=== PATIENT | female | born 2000 | race Caucasian/White ===

== ENCOUNTER → 2018-12-17 19:15 | Observation (INO) ==
--- NOTE | 2018-12-17 17:23 | Discharge Summary ---
Date of Encounter: 12/17/18 Time of Encounter: 17:21 - Discharge Diagnosis (1) 35 weeks gestation of Priority: Primary Status: Acute Comments: Admit to observation for possible SROM (2) Vaginal discharge during in third trimester Priority: Secondary Status: Acute Comments: Vaginosis panel collected and sent to lab Nitrazine negative - Discharge Medications Prescriptions: No Action Caplet 1 tab PO DAILY Home Medications: Caplet 1 tab PO DAILY 12/17/18 [History] Allergies/Adverse Reactions: Allergy/AdvReac Type Severity Reaction Status Date / Time codeine Allergy Gastrointestinal Verified 05/08/18 11:49 Upset diphenhydramine Allergy Itching Verified 05/08/18 11:49 [From Benadryl] Date of admission: 12/17/18 16:26 Discharging clinician: Nesha Finney Anticipated date of discharge: 12/17/18 - Patient Status Disposition: Home, Self-Care Condition: Good Functional capacity at discharge: independent ambulation Overall status at discharge: patient is progressing back to baseline - Discharge Instructions Follow Up With: Raegan Lion [Partnered Physician] - Forms: Work/School Release Additional Instructions: LABOR AND DELIVERY DISCHARGE INSTRUCTIONS Signs and Symptoms to be Reported to your Doctor Immediately: * Sudden gush, continuous or intermittent lead of fluid from vagina (note the time of gush and color of fluid) * Onset of bright red vaginal bleeding with or without pain (if you had a vaginal exam during this visit you may notice some dark red spotting. This is normal.) * Lower abdominal cramping or backache that is premenstrual-like feeling. * More than 6 contractions in one hour. * Burning during urination, having to urinate more frequently or pain in your mid-back. * A change in the baby's activity. This could be an increase or decrease in activity. * Severe headache which does not go away with tylenol. * Sudden swelling in the face, hands, arms and/or legs. * Upper abdominal pain - sometimes associated with heartburn or nausea and is not relieved by Maalox, Mylanta or Tums. * Dizziness or blurred vision or visual disturbances (seeing stars/lights). * Kick Counts One hour after a meal, lay down on one side in a quiet place. Count the number of kat the baby moves during an hour. If less than 6 movements, notify your physician. Diet: *Force fluids - 8-10 tall glasses of fluid per day. May include popsicles and jello. *Limit caffeine - this includes chocolate, coffee, tea, any soft drink containing such as all morena, Guerrero Yellow and Mountain Dew - Diet and Activity Activity: resume usual activities as tolerated Diet: regular diet Hospital Course [employer]OR Hospital course: Patient is a G1 at 35.6 weeks who presented today with complaint of fluid leakage x 3 days. She reports that she has had intercourse daily for the last 3 days. Reports watery fluid discharge, denies bleeding and contractions. Sterile speculum exam performed and no obvious fluid or pooling noted, FERN negative. Moderate amount of white vaginal discharge noted, and sample obtained for FERN and vaginosis panel collected. She is to return to her OB provider, Dr. Lion, as scheduled for routine care. Patient will be notified if any results return abnormal. Time Attestation: Total time spent providing and/or coordinating discharge services: Time Spent: Less than 30 minutes Exam - Constitutional General appearance IM: A&O X 3, pleasant, no acute distress, answers questions appropriately - Respiratory Respiratory exam: Present: CTAB. Absent: respiratory distress - Cardiovascular Cardiovascular exam IM: Present: RRR, +S1, +S2. Absent: irregular rhythm - GI/Abdominal GI/Abdominal exam IM: normal bowel sounds, soft - Rectal Rectal exam: deferred - External exam: normal external exam - Extremities Exam Extremities exam IM: Present: full ROM, normal capillary refill, normal inspection. Absent: calf tenderness - Neurological Exam Neurological exam: alert, normal gait, oriented X3 - VTE Reasons for not Prescribing Prophylaxis: Treatment not Indicated - Low risk for VTE
[2018-12-17 18:40] LABS: Bilirubin,Urine Negative (Negative); Blood,Urine Negative (Negative); Clarity,Urine Clear (Clear); Color,Urine Yellow (Yellow); Glucose,Urine (UA) Normal (Normal); Ketones,Urine Negative (Negative); Leukocyte Esterase,Urine Moderate (Negative); Nitrite,Urine Negative (Negative); PH,Urine 6.5 pH Units (5.0-8.0); Protein,Urine Negative (Neg-Trace); Specific Gravity,Urine 1.025 (1.010-1.025); Urobilinogen,Urine Normal (Normal)
[2018-12-17 18:46] LABS: Bacteria,Urine Few per hpf (None-Few); Hyaline Casts,Urine Few per lpf (None-Few); RBC,Urine 0-3 per hpf (0-3); Squamous Epithelial Cell,Urine Many per lpf (None-Few); WBC,Urine 30-50 per hpf (0-3)
[2018-12-17 18:50] LABS: Amphetamine Screen,Urine Negative ng/mL (Cutoff=1000); Barbiturate Screen,Urine Negative ng/mL (Cutoff=200); Benzodiazepines Screen,Urine Negative ng/mL (Cutoff=200); Cannabinoid Screen,Urine Negative ng/mL (Cutoff = 50); Cocaine Screen,Urine Negative ng/mL (Cutoff= 300); Opiate Screen,Urine Negative ng/mL (Cutoff=300); Phencyclidine Screen,Urine Negative ng/mL (Cutoff=25)
[2018-12-17 20:50] LABS: Candida DNA Not Detected (Not Detect); Gardnerella DNA Not Detected (Not Detect); Trichomonas DNA Not Detected (Not Detect)
== END | disposition home or self-care (01) ==
LOC: 1NENULAB
PROVIDERS: ADMIT Registered Nurse; ATTEND Registered Nurse

== ENCOUNTER 2019-01-07 16:04 | Inpatient (IN) ==
[~2019-01-07 16:04] MED LIST: *HR* Nalbuphine 10 MG/ML AMPUL IVP PRN; Famotidine 20 MG/2 ML VIAL IVP PRN; Lidocaine 1% 20 ML MDV INFILT PRN; Metoclopramide 10 MG/2 ML VIAL IVP PRN; Naloxone 0.4 MG/ML INJ IVP PRN; Ondansetron 4 MG/2 ML VIAL IVP PRN; Oxytocin 20 units/ LR 1000 mL 20 UNIT/1,000 ML BAG IVC SCH; Penicillin G Potassium 5,000,000 UNIT in 0.9 % Sodium Chloride Mini Bag 100 ML IVPB ONE; Ringers Solution, Lactated 1,000 ML IVC SCH
[2019-01-07 16:10] LABS: Basophils % 0.3 %; Eosinophils # 0.1 K/mcL (0.0-0.6); Eosinophils % 0.5 %; Hematocrit 37.2 % (35.3-44.9); Hemoglobin 12.4 g/dL (11.5-15.4); Immature Granulocytes % 0.8 % (0-4); Lymphocytes % 13.4 %; Mean Corpuscular HGB Conc 33.3 g/dL (31.6-35.5); Mean Corpuscular Hemoglobin 29.9 pg (28.0-33.3); Mean Corpuscular Volume 89.6 fL (83.0-100.0); Mean Platelet Volume 10.8 fL (9.4-12.4); Monocytes # 0.9 K/mcL (0.0-1.3); Neutrophils # 11.8 K/mcL (1.6-8.9); Platelet Count 253 K/mcL (140-400); Red Blood Count 4.15 M/mcL (3.82-4.97); Red Cell Distribution Width 12.8 % (11.5-14.5); White Blood Count 14.9 K/mcL (4.3-11.1)
[2019-01-07] MEDS ORDERED: *HR* FentaNYL (PF) 100 MCG/2 ML VIAL EP ONE (18:02)
[2019-01-07] MEDS ORDERED: Epidural Premix (fent/bupiv) 110 ML EP SCH (18:15)
[2019-01-07] MEDS ORDERED: Epidural Premix (fent/bupiv) 110 ML EP ONE (18:19)
[2019-01-07 19:30] LABS: Amphetamine Screen,Urine Negative ng/mL (Cutoff=1000); Barbiturate Screen,Urine Negative ng/mL (Cutoff=200); Benzodiazepines Screen,Urine Negative ng/mL (Cutoff=200); Cannabinoid Screen,Urine Negative ng/mL (Cutoff = 50); Cocaine Screen,Urine Negative ng/mL (Cutoff= 300); Opiate Screen,Urine Negative ng/mL (Cutoff=300); Phencyclidine Screen,Urine Negative ng/mL (Cutoff=25)
[2019-01-07] MEDS ORDERED: Penicillin G Potassium 2,500,000 UNIT in 0.9 % Sodium Chloride 100 ML IVPB SCH (20:00)
[2019-01-07] MEDS ORDERED: Oxytocin 20 units/ LR 1000 mL 20 UNIT/1,000 ML BAG IVC ONE (21:30)
[2019-01-07] MEDS ORDERED: Acetaminophen 325 MG TABLET PO ONE (22:54)
[2019-01-08] MEDS ORDERED: Oxytocin 20 units/ LR 1000 mL 20 UNIT/1,000 ML BAG IVC SCH (03:13)
[2019-01-08] MEDS ORDERED: Acetaminophen 325 MG TABLET PO PRN (03:13)
[2019-01-08] MEDS: Prenatal Vit/FA 1 EACH TABLET PO SCH (08:56)
[2019-01-08] MEDS: *HR* HYDROcodone/Acet 5/325 mg TABLET PO PRN ×2 (08:59→18:10)
[2019-01-08] MEDS: Ibuprofen 600 MG TABLET PO PRN ×2 (11:46→18:10)
[2019-01-09] MEDS: Ibuprofen 600 MG TABLET PO PRN ×2 (00:55→07:54)
[2019-01-09] MEDS: Prenatal Vit/FA 1 EACH TABLET PO SCH (07:54)
[2019-01-09 07:58] VITALS: BP 112/69
== END 2019-01-09 11:47 | disposition home or self-care (01) | DRG 560 ==
LOC: 1NENULAB → 1NENUOBS 01-08 02:41
PROVIDERS: ADMIT Registered Nurse; ATTEND Registered Nurse

== ENCOUNTER → 2020-09-19 16:07 | Observation (INO) ==
[2020-09-19 14:02] LABS: Bilirubin,Urine Negative (Negative); Blood,Urine Negative (Negative); Clarity,Urine Turbid (Clear); Color,Urine Yellow (Yellow); Glucose,Urine (UA) Normal (Normal); Ketones,Urine Negative (Negative); Leukocyte Esterase,Urine Small (Negative); Nitrite,Urine Negative (Negative); PH,Urine 7.5 pH Units (5.0-8.0); Protein,Urine Trace mg/dL (Neg-Trace); Specific Gravity,Urine 1.016 (1.010-1.025); Urobilinogen,Urine Normal (Normal)
[2020-09-19 14:06] LABS: Bacteria,Urine Few per hpf (None-Few); Hyaline Casts,Urine Few per lpf (None Seen); Mucus,Urine Few per lpf (None-Few); Squamous Epithelial Cell,Urine Moderate per hpf (None-Few); Transitional Epi Cells,Urine Few per hpf (None-Few); WBC,Urine 30-50 per hpf (0-3)
[2020-09-19 15:10] LABS: Candida DNA Not Detected (Not Detect); Gardnerella DNA DETECTED (Not Detect); Trichomonas DNA Not Detected (Not Detect)
== END | disposition home or self-care (01) ==
LOC: 1NENULAB
PROVIDERS: ADMIT Obstetrics & Gynecology; ATTEND Obstetrics & Gynecology

== ENCOUNTER → 2020-10-01 17:41 | Observation (INO) ==
[2020-10-01 14:55] LABS: Bacteria,Urine Few per hpf (None-Few); Bilirubin,Urine Negative (Negative); Blood,Urine Negative (Negative); Clarity,Urine Turbid (Clear); Color,Urine Yellow (Yellow); Glucose,Urine (UA) Normal (Normal); Ketones,Urine Negative (Negative); Leukocyte Esterase,Urine Negative (Negative); Mucus,Urine Few per lpf (None-Few); Nitrite,Urine Negative (Negative); Protein,Urine 30 mg/dL (Neg-Trace); RBC,Urine 0-3 per hpf (0-3); Specific Gravity,Urine 1.021 (1.010-1.025); Squamous Epithelial Cell,Urine Moderate per hpf (None-Few); Urobilinogen,Urine Normal (Normal)
== END | disposition home or self-care (01) ==
LOC: 1NENULAB
PROVIDERS: ADMIT Registered Nurse; ATTEND Registered Nurse

== ENCOUNTER 2020-10-22 10:22 | Observation (INO) ==
[2020-10-22] MEDS ORDERED: Ringers Solution, Lactated 1,000 ML IVC ONE (11:12)
[2020-10-22] MEDS ORDERED: Ringers Solution, Lactated 1,000 ML ONE (11:16)
[2020-10-22 11:27] LABS: Bilirubin,Urine Negative (Negative); Blood,Urine Negative (Negative); Clarity,Urine Ex.Turbid (Clear); Color,Urine Light-Orange (Yellow); Glucose,Urine (UA) Normal (Normal); Ketones,Urine Negative (Negative); Leukocyte Esterase,Urine Negative (Negative); Nitrite,Urine Negative (Negative); Protein,Urine Trace mg/dL (Neg-Trace); Urobilinogen,Urine Normal (Normal)
[2020-10-22 11:47] LABS: Amorphous Sediment,Urine Few per hpf (None-Few); Bacteria,Urine Few per hpf (None-Few); RBC,Urine 0-3 per hpf (0-3); Squamous Epithelial Cell,Urine Moderate per hpf (None-Few)
[2020-10-22 11:58] LABS: Basophils # 0.1 K/mcL (0.0-0.2); Basophils % 0.4 %; Eosinophils # 0.1 K/mcL (0.0-0.6); Eosinophils % 0.8 %; Hematocrit 32.6 % (35.3-44.9); Hemoglobin 10.3 g/dL (11.5-15.4); Lymphocytes # 1.9 K/mcL (0.6-4.6); Lymphocytes % 15.8 %; Mean Corpuscular HGB Conc 31.6 g/dL (31.6-35.5); Mean Corpuscular Volume 88.6 fL (83.0-100.0); Monocytes # 0.8 K/mcL (0.0-1.3); Monocytes % 6.4 %; Neutrophils # 9.2 K/mcL (1.6-8.9); Platelet Count 237 K/mcL (140-400); Red Blood Count 3.68 M/mcL (3.82-4.97); Red Cell Distribution Width 13.1 % (11.5-14.5); Segmented Neutrophils % 75.6 %; White Blood Count 12.2 K/mcL (4.3-11.1)
== END 2020-10-22 13:15 | disposition home or self-care (01) ==
LOC: 1NENULAB
PROVIDERS: ADMIT Advanced Practice Midwife; ATTEND Advanced Practice Midwife

== ENCOUNTER 2020-10-31 03:29 | Inpatient (IN) ==
[2020-10-31] MEDS ORDERED: Famotidine 20 MG/2 ML VIAL IVP PRN (03:36)
[2020-10-31] MEDS ORDERED: Naloxone 0.4 MG/ML INJ IVP PRN (03:36)
[2020-10-31] MEDS ORDERED: *HR* Nalbuphine 10 MG/ML AMPUL IV PRN (03:36)
[2020-10-31] MEDS ORDERED: Lidocaine 1% 20 ML MDV INFILT PRN (03:36)
[2020-10-31] MEDS ORDERED: Metoclopramide 10 MG/2 ML VIAL IVP PRN (03:36)
[2020-10-31] MEDS ORDERED: Oxytocin 20 units/ LR 1000 mL 20 UNIT/1,000 ML BAG IVC SCH ×2 (03:45→17:07)
[2020-10-31] MEDS: Ringers Solution, Lactated 1,000 ML IVC SCH ×2 (04:30→11:21)
[2020-10-31 04:50] LABS: Basophils % 0.3 %; Eosinophils # 0.1 K/mcL (0.0-0.6); Hematocrit 31.4 % (35.3-44.9); Immature Granulocytes % 0.7 % (0-4); Lymphocytes # 2.5 K/mcL (0.6-4.6); Lymphocytes % 20.3 %; Mean Corpuscular HGB Conc 31.8 g/dL (31.6-35.5); Mean Corpuscular Hemoglobin 27.7 pg (28.0-33.3); Monocytes # 0.8 K/mcL (0.0-1.3); Monocytes % 6.5 %; Neutrophils # 8.8 K/mcL (1.6-8.9); Platelet Count 235 K/mcL (140-400); Red Blood Count 3.61 M/mcL (3.82-4.97); Red Cell Distribution Width 13.2 % (11.5-14.5); Segmented Neutrophils % 71.2 %; White Blood Count 12.4 K/mcL (4.3-11.1)
[2020-10-31 05:00] LABS: Creatinine,Urine 72 mg/dL; Protein/Creatinine Ratio,Urine 0.22 mg/mg (0.00-0.20)
[2020-10-31 05:09] LABS: Alanine Aminotransferase 9 Units/L (7-52); Aspartate Amino Transferase 13 Units/L (13-39); BUN/Creatinine Ratio 13 (6-26); Blood Urea Nitrogen 9 mg/dL (6-20); Lactate Dehydrogenase 142 Units/L (140-271); Uric Acid 4.5 mg/dL (2.3-7.6); eGFR For African Americans > 60 (> 60); eGFR For Non-African Americans > 60 (> 60)
[2020-10-31 05:33] LABS: Amphetamine Screen,Urine Negative ng/mL (Cutoff=1000); Barbiturate Screen,Urine Negative ng/mL (Cutoff=200); Benzodiazepines Screen,Urine Negative ng/mL (Cutoff=300); Cannabinoid Screen,Urine Negative ng/mL (Cutoff = 50); Cocaine Screen,Urine Negative ng/mL (Cutoff= 300); Opiate Screen,Urine Negative ng/mL (Cutoff=300); Phencyclidine Screen,Urine Negative ng/mL (Cutoff=25)
[2020-10-31 05:42] LABS: Glucose 85 mg/dL (70-105)
[2020-10-31] MEDS ORDERED: EPHEDrine 50 MG/ML VIAL IVP PRN (08:19)
[2020-10-31] MEDS ORDERED: Epidural Premix (fent/bupiv) 110 ML EP SCH (08:30)
[2020-10-31] MEDS ORDERED: *HR* FentaNYL (PF) 100 MCG/2 ML VIAL ONE (12:36)
[2020-10-31] MEDS ORDERED: Ropivacaine/PF 0.2% 20 ML VIAL ONE (12:36)
[2020-10-31] MEDS ORDERED: Acetaminophen 325 MG TABLET PO ONE (14:39)
[2020-10-31] MEDS: Ibuprofen 600 MG TABLET PO SCH (17:48)
[2020-10-31] MEDS: Acetaminophen 325 MG TABLET PO SCH (22:02)
[2020-11-01] MEDS: Ibuprofen 600 MG TABLET PO SCH ×3 (01:57→15:48)
[2020-11-01] MEDS: Acetaminophen 325 MG TABLET PO SCH ×2 (04:48→15:48)
[2020-11-01 07:32] VITALS: BP 125/72; PULSE 78; TEMP 98; O2SAT 97
[2020-11-01] MEDS ORDERED: Prenatal Vit/FA 1 EACH TABLET PO SCH (09:00)
== END 2020-11-01 15:45 | disposition home or self-care (01) | DRG 560 ==
LOC: 1NENULAB 03:29 → 1NENUOBS 17:06
PROVIDERS: ADMIT Obstetrics & Gynecology; ATTEND Obstetrics & Gynecology

== ENCOUNTER 2021-01-10 09:23 | Observation (INO) ==
[2021-01-10] MEDS ORDERED: 0.9 % Sodium Chloride 1,000 ML IV ONE (09:47)
[2021-01-10 10:24] LABS: Bacteria,Urine Few per hpf (None-Few); Bilirubin,Urine Negative (Negative); Blood,Urine Moderate (Negative); Clarity,Urine Clear (Clear); Color,Urine Yellow (Yellow); Glucose,Urine (UA) Normal (Normal); Ketones,Urine Trace mg/dL (Negative); Leukocyte Esterase,Urine Small (Negative); Mucus,Urine Few per lpf (None-Few); Nitrite,Urine Negative (Negative); PH,Urine 6.5 pH Units (5.0-8.0); Protein,Urine 50 mg/dL (Neg-Trace); Specific Gravity,Urine 1.024 (1.010-1.025); Squamous Epithelial Cell,Urine Moderate per hpf (None-Few); Urobilinogen,Urine Normal (Normal)
[2021-01-10 10:41] LABS: Basophils # 0.1 K/mcL (0.0-0.2); Basophils % 0.3 %; Hemoglobin 13.1 g/dL (11.5-15.4); Immature Granulocytes % 0.7 % (0-4); Lymphocytes # 1.1 K/mcL (0.6-4.6); Lymphocytes % 5.4 %; Mean Corpuscular HGB Conc 31.2 g/dL (31.6-35.5); Mean Corpuscular Hemoglobin 27.3 pg (28.0-33.3); Mean Corpuscular Volume 87.5 fL (83.0-100.0); Mean Platelet Volume 10.5 fL (9.4-12.4); Monocytes # 0.4 K/mcL (0.0-1.3); Monocytes % 2.2 %; Neutrophils # 18.3 K/mcL (1.6-8.9); Platelet Count 338 K/mcL (140-400); Red Cell Distribution Width 15.2 % (11.5-14.5); Segmented Neutrophils % 91.4 %
[2021-01-10 11:17] LABS: Alanine Aminotransferase 18 Units/L (7-52); Albumin 4.3 g/dL (3.5-5.7); Albumin/Globulin Ratio 1.3 (1.1-2.2); Alkaline Phosphatase 129 Units/L (34-104); Aspartate Amino Transferase 21 Units/L (13-39); BUN/Creatinine Ratio 13 (6-26); Bilirubin,Total 0.6 mg/dL (0.3-1.0); Blood Urea Nitrogen 10 mg/dL (6-20); Calcium 9.1 mg/dL (8.6-10.3); Carbon Dioxide 23 mEq/L (23-29); Globulin 3.3 g/dL (2.4-3.5); Glucose 106 mg/dL (70-105); Lipase 13 Units/L (11-82); Total Protein 7.6 g/dL (6.4-8.9); eGFR For African Americans > 60 (> 60); eGFR For Non-African Americans > 60 (> 60)
[2021-01-10 11:53] LABS: Chloride 106 mEq/L (98-107); Osmolality,Calculated 285 (280-300); Potassium 3.9 mEq/L (3.5-5.1); Sodium 138 mEq/L (136-145)
[2021-01-10] MEDS ORDERED: Ondansetron 4 MG/2 ML VIAL IVP SCH (12:00)
[2021-01-10] MEDS ORDERED: Isovue-370 500 ML BOTTLE IVP ONE (12:43)
[2021-01-10] MEDS ORDERED: *HR* FentaNYL (PF) 100 MCG/2 ML VIAL IVP ONE (13:39)
[2021-01-10] MEDS ORDERED: Piperacillin/Tazobactam 3.375 GM in 0.9 % Sodium Chloride Mini Bag 100 ML IVPB ONE (13:41)
[2021-01-10] MEDS ORDERED: *HR* FentaNYL (PF) 100 MCG/2 ML VIAL ONE (14:37)
[2021-01-10] MEDS ORDERED: *HR* Midazolam HCl 2 MG/2 ML VIAL ONE (14:37)
[2021-01-10] MEDS ORDERED: Lidocaine -MPF 2% 5 ML VIAL ONE (14:37)
[2021-01-10] MEDS ORDERED: *HR* Propofol 200 MG/20 ML VIAL IVP ONE (14:37)
[2021-01-10] MEDS ORDERED: Ondansetron 4 MG/2 ML VIAL ONE (14:37)
[2021-01-10] MEDS ORDERED: Lidocaine -MPF 4% 5 ML AMPUL ONE ×2 (14:37→14:38)
[2021-01-10] MEDS ORDERED: *HR* Rocuronium Bromide 50 MG/5 ML VIAL ONE (14:37)
[2021-01-10] MEDS ORDERED: CefOXitin 1,000 MG VIAL ONE (14:42)
[2021-01-10] MEDS ORDERED: Isovue-300 50ML VIAL ONE (14:42)
[2021-01-10] MEDS ORDERED: Acetaminophen IV 1,000 MG/100 ML BAG IVPB ONE (14:45)
[2021-01-10] MEDS ORDERED: *HR* HYDROmorphone PF 0.5 MG/0.5 ML SYRINGE IVP PRN (14:58)
[2021-01-10] MEDS ORDERED: cefOXitin 1,000 MG, 0.9 % Sodium Chloride 1,000 ML IR ONE (15:00)
[2021-01-10] MEDS ORDERED: *HR* Succinylcholine 200 MG/10 ML VIAL IVP ONE (15:16)
[2021-01-10] MEDS ORDERED: *HR* HYDROMORPHONE 2 MG/ML VIAL ONE (15:32)
[2021-01-10] MEDS ORDERED: Ketorolac 30 MG/ML VIAL ONE (16:06)
[2021-01-10] MEDS ORDERED: Ondansetron 4 MG/2 ML VIAL IVP PRN (17:51)
[2021-01-10] MEDS ORDERED: 0.9 % Sodium Chloride 1,000 ML IVC SCH (17:51)
[2021-01-10] MEDS: *HR* OxyCODONE/APAP 5/325 TABLET PO PRN ×2 (18:43→22:44)
[2021-01-10] MEDS: Piperacillin/Tazobactam 3.375 GM in 0.9 % Sodium Chloride Mini Bag 100 ML IVPB SCH (20:19)
[2021-01-11] MEDS: Piperacillin/Tazobactam 3.375 GM in 0.9 % Sodium Chloride Mini Bag 100 ML IVPB SCH (04:11)
[2021-01-11 06:45] VITALS: BP 123/79; PULSE 84; TEMP 98.4; O2SAT 92
[2021-01-11 08:03] LABS: Basophils % 0.2 %; Red Blood Count 4.56 M/mcL (3.82-4.97)
[2021-01-11 08:05] LABS: Basophils # 0.1 K/mcL (0.0-0.2); Hematocrit 39.9 % (35.3-44.9); Hemoglobin 12.6 g/dL (11.5-15.4); Immature Granulocytes % 0.9 % (0-4); Lymphocytes # 1.1 K/mcL (0.6-4.6); Mean Corpuscular HGB Conc 31.6 g/dL (31.6-35.5); Mean Corpuscular Hemoglobin 27.6 pg (28.0-33.3); Mean Corpuscular Volume 87.5 fL (83.0-100.0); Mean Platelet Volume 10.6 fL (9.4-12.4); Monocytes # 0.8 K/mcL (0.0-1.3); Monocytes % 3.1 %; Platelet Count 311 K/mcL (140-400); Segmented Neutrophils % 91.8 %; White Blood Count 26.5 K/mcL (4.3-11.1)
[2021-01-11 08:13] LABS: Neutrophils # 24.3 K/mcL (1.6-8.9)
[2021-01-11 08:22] LABS: Alanine Aminotransferase 65 Units/L (7-52); Albumin 3.8 g/dL (3.5-5.7); Albumin/Globulin Ratio 1.4 (1.1-2.2); Alkaline Phosphatase 147 Units/L (34-104); Aspartate Amino Transferase 56 Units/L (13-39); BUN/Creatinine Ratio 12 (6-26); Bilirubin,Direct 0.3 mg/dL (0.0-0.2); Bilirubin,Indirect 0.6 mg/dL (0.0-1.0); Bilirubin,Total 0.9 mg/dL (0.3-1.0); Blood Urea Nitrogen 10 mg/dL (6-20); Calcium 8.7 mg/dL (8.6-10.3); Carbon Dioxide 24 mEq/L (23-29); Chloride 106 mEq/L (98-107); Globulin 2.8 g/dL (2.4-3.5); Glucose 97 mg/dL (70-105); Osmolality,Calculated 285 (280-300); Potassium 3.6 mEq/L (3.5-5.1); Sodium 138 mEq/L (136-145); Total Protein 6.6 g/dL (6.4-8.9); eGFR For African Americans > 60 (> 60); eGFR For Non-African Americans > 60 (> 60)
[2021-01-11 08:36] LABS: Platelet Estimate Normal (Normal)
[2021-01-11] MEDS ORDERED: Ibuprofen 800 MG TABLET PO ONE (08:50)
== END 2021-01-11 12:14 | disposition home or self-care (01) ==
LOC: EMEROOARM 09:23 → 3BNU 09:23
PROVIDERS: ADMIT Surgery; ATTEND Surgery